=== PATIENT | male | born 1960 | race Caucasian/White ===

== ENCOUNTER 2022-08-08 09:22 | Outpatient (RCR) | payer BC, SELFPAY ==
[2022-08-08 09:30] VITALS: BP 156/90; PULSE 61; TEMP 36.4; BMI 41.4
--- NOTE | 2022-08-08 16:28 | HP.PCM_ITS ---
History of Present Illness Date of Service: 08/08/22 Chief Complaint: Swelling and edema in the patient's lower extremities temitope aterally History of Wound: This is a 61-year-old male who was referred by his orthopedic surgeon, Dr. Najera, for evaluation and management of the patient's lower extremity swelling and edema. The patient has severe degenerative knee disease bilaterally, which greatly hampers his ability to ambulate. His orthopedic surgeon is contemplating bilateral total knee replacement, which is anticipated to involve left total knee replacement initially. However, the patient's morbid obesity and lower extremity swelling are concerns about which the patient's orthopedic surgeon has expressed. Dr. Najera has recommended that the patient engage in weight loss efforts prior to consideration of left total knee replacement. Control the patient's lower extremity swelling is also desired. The patient claims to sleep on a flat mattress at night. 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 His ambulation is extremely limited by his severe degenerative knee disease. He ambulates very slowly with the aid of a cane. The swelling in the patient's lower extremities is said to be worse at the end of the day. He denies a history of thrombophlebitis. He is currently under taking no preventative measures with regard to the swelling and edema. [facility] Medical History Degenerative joint disease of knee, left Degenerative joint disease of knee, right Hyperlipidemia Hypertension Leg edema, left Leg edema, right Leg swelling Morbid obesity with BMI of 40.0-44.9, adult Home Medications metoprolol tartrate 50 mg tablet 50 mg PO BID 08/08/22 [History Last Taken Unknown] rosuvastatin 10 mg tablet 10 mg PO DAILY 08/08/22 [History Last Taken Unknown] Vital Signs Vital Signs Vital Signs: 08/08/22 09:30 Temperature 97.6 F L Temperature Source Temporal Pulse Rate 61 Blood Pressure 156/90 H Blood Pressure Mean 112 Blood Pressure Source Monitor Blood Pressure Position Semi-Fowlers Blood Pressure Location Left Arm Weight Weight: 280 lb 9.877 oz Body Mass Index (BMI) 41.4 Physical Exam Const alert, oriented x3, no apparent distress and well nourished Constitutional Narrative: The patient is morbidly obese. General Appearance: cooperative, comfortable, well kempt and well developed Orientation / Consciousness: awake, oriented to person, oriented to place and oriented to time Exam Limitations: no limitations HEENT normocephalic and head/scalp atraumatic Head and Scalp: normal to inspection, normocephalic and atraumatic External Ear: external ears normal Eyes PERRL and EOMs intact bilaterally General Eye: normal appearance of both eyes Resp normal respiratory effort, normal air movement, no retractions and no use of accessory muscles Effort and Inspection: able to speak in complete sentences Extremity no calf tenderness General Extremity: Negative for clubbing or cyanosis Skin Wound Narrative: There are no open wounds or ulcerations in the patient's lower extremities. Significant anatomic distortion is noted in the patient's lower extremities, particularly on the left, with angulation of the left lower extremity due to the patient's degenerative left knee disease. Scattered varicosities are noted. Are noted in the patient's lower extremities. Neuro oriented x3, CN's II-XII intact bilaterally and moves all extremities Sensorium / Orientation: awake, alert, oriented to person, oriented to place and oriented to time Psych Appearance: grossly normal and appropriate Attitude: calm Activity / Motor Behavior: appropriate eye contact Speech: normal speech Mood & Affect: euthymic mood Thought Process: normal thought process Thought Content: normal thought content Attention / Concentration: attention grossly intact Debridement Note Debridement Note No debridement was completed: No debridement was completed today (There are no open wounds or ulcerations.) Post-Debridement Measurements and Additional Note: Post-Debridement Measurements/Treatment ZAID - Nurse 1 - General Ulcer Assessment Start: 08/08/22 09:30 Freq: Status: Active Protocol: ZAK Activity Type Activity Date Activity User E-sign Co-sign Detail Recorded Client Recorded Date Recorded By Document 08/08/22 09:30 DANNY [id number] 08/08/22 09:40 DANNY 08/08/22 09:30 - Today's Visit Information Type of service Initial Visit Arrival Mode Ambulatory,Cane Patient Identification Verified (Name & Yes ) Height and Weight Height 5 ft 9 in Weight 280 lb 9.877 oz Weight in Pounds 280.6 lbs Body Mass Index (BMI) 41.4 BMI Classification Obese BSA - Jessy 2.39 Vital Signs Temperature (97.8 F-99.1 F) 97.6 F L Temperature Source Temporal Pulse Rate (60-100) 61 Pulse Location Monitor Blood Pressure (90/60-120/80) 156/90 H Blood Pressure Mean 112 Source Monitor Position Semi-Fowlers Blood Pressure Location Left Arm History Since Last Visit- (Skip if this is Patient's initial visit) Have you changed medications since your No last visit? Any new allergies or adverse reactions No Had a fall/change in ADL's that may No increase risk of falls Signs or symptoms of abuse and/or No neglect since last visit Have you been in the hospital since your No last visit? Has dressing in place as prescribed No Has compression in place as prescribed N/A Has offloadiing in place as prescribed N/A Experienced any changes in pain level or No management Left Footwear Regular Shoe Right Footwear Regular Shoe Pain Scale: 0-10 Numeric Is Patient Pain Free? Yes - Nurse 1 - General Ulcer Measurement Start: 08/08/22 09:30 Freq: Status: Active Protocol: Activity Type Activity Date Activity User E-sign Co-sign Detail Recorded Client Recorded Date Recorded By Document 08/08/22 09:30 KR [id number] 08/08/22 09:40 KR 08/08/22 09:30 Wound Center Nurse 1 Right Calf (cm) 51.5 Right Ankle (cm) 26.5 Left Calf (cm) 54.6 Left Ankle (cm) 26.8 - Nurse 3 - General Ulcer D/C NN Start: 08/08/22 09:30 Freq: Status: Active Protocol: Activity Type Activity Date Activity User E-sign Co-sign Detail Recorded Client Recorded Date Recorded By Document 08/08/22 10:06 NOÉ [id number] 08/08/22 10:07 NOÉ 08/08/22 10:06 Wound Care Nurse 3 Left -Tubular Bandage Single Layer -Size of Tubigrip Used Size E -Size E ($) 1 Right -Tubular Bandage Single Layer -Size of Tubigrip Used Size E -Size E ($) 1 Treatment Response Procedure Tolerated Well Pain Scale: 0-10 Numeric Is Patient Pain Free? Yes WC - Visit Discharge Discharge Condition Stable Ambulatory Status Ambulatory,Cane Transportation Private Auto Notes: Wt: 290.6 Facility Type [facility] Care Facility Orders Sent Yes Assessment/Plan Assessment/Plan (1) Leg swelling: CODE(S): M79.89 - Other specified soft tissue disorders (2) Leg edema, left: CODE(S): R60.0 - Localized edema (3) Leg edema, right: CODE(S): R60.0 - Localized edema (4) Degenerative joint disease of knee, left: CODE(S): M17.12 - Unilateral primary osteoarthritis, left knee (5) Degenerative joint disease of knee, right: CODE(S): M17.11 - Unilateral primary osteoarthritis, right knee (6) Morbid obesity with BMI of 40.0-44.9, adult: CODE(S): E66.01 - Morbid (severe) obesity due to excess calories; Z68.41 - Body mass index [BMI] 40.0-44.9, adult (7) Hypertension: CODE(S): I10 - Essential (primary) hypertension (8) Hyperlipidemia: CODE(S): E78.5 - Hyperlipidemia, unspecified PLAN: Plan This is a 61-year-old morbidly obese male with severe degenerative joint disease of his knees. As result, the patient is very limited in his ambulatory capacity. He ambulates very slowly with the aid of a cane. He is under the care of an orthopedic surgeon at the [facility] in [place], [place]. Total knee replacement surgeries are anticipated, but his orthopedic surgeon has recommended weight loss as a prelude to knee replacement surgery. It is also desired that the swelling in the patient's lower extremities, under control. Conservative treatment measures are to be implemented, and have been discussed thoroughly with the patient today. Leg elevation has been discussed. The patient is to elevate his lower extremities is much as possible. He is to continue sleeping on a flat mattress at night. Leg elevation is to be implemented even during daytime hours. His legs are to be elevated to heart level, or higher, is much as possible. Prolonged idle sitting has been discouraged, and is to be kept to a minimum. Unfortunately, while ambulation and activity would be desirable, the patient is extremely limited in his ambulatory capacity due to his degenerative joint disease of his knees. We are to implement compression by means of Tubigrip's of 20 to 30 mmHg compression. These are to be donned each morning, and doffed at bedtime. The patient has an appointment for nutritional consultation next week, at which time it is anticipated that weight loss measures will be discussed and implemented. Patient is to return next week for reevaluation by the nursing staff, and will return the following week for physician reassessment. Total time: 25 minutes
== END 2022-08-11 23:59 | disposition home or self-care (01) ==
LOC: WC 09:22
PROVIDERS: Visit Provider Surgery
DX: R60.0 Localized edema (principal); E66.01 Morbid (severe) obesity due to excess calories; Z68.41 Body mass index [BMI] 40.0-44.9, adult; M17.0 Bilateral primary osteoarthritis of knee; E78.5 Hyperlipidemia, unspecified; I10 Essential (primary) hypertension; M79.89 Other specified soft tissue disorders; Z79.899 Other long term (current) drug therapy
CPT/HCPCS: 99213; G0463

== ENCOUNTER 2022-09-05 09:30 | Outpatient (RCR) | payer BC, SELFPAY ==
[2022-08-12 01:51] VITALS: BP 156/90; PULSE 61; TEMP 36.4; BMI 41.4
[2022-08-15 15:03] VITALS: BP 158/89; PULSE 64; RESP 18; TEMP 37.1; BMI 41.4
[2022-08-29 10:14] VITALS: BP 148/84; PULSE 61; RESP 20; TEMP 36.3; BMI 41.4
--- NOTE | 2022-08-29 11:29 | PCM.WC.HP ---
History of Present Illness Date of Service: 08/29/22 Chief Complaint: Swelling and edema in the patient's lower extremities bilaterally History of Wound: This is a 61-year-old male who was referred by his orthopedic surgeon, Dr. Najera, for evaluation and management of the patient's lower extremity swelling and edema. The patient has severe degenerative knee disease bilaterally, which greatly hampers his ability to ambulate. His orthopedic surgeon is contemplating bilateral total knee replacement, which is anticipated to involve left total knee replacement initially. However, the patient's morbid obesity and lower extremity swelling are concerns about which the patient's orthopedic surgeon has expressed. Dr. Najera has recommended that the patient engage in weight loss efforts prior to consideration of left total knee replacement. Control the patient's lower extremity swelling is also desired. The patient claims to sleep on a flat mattress at night. 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 His ambulation is extremely limited by his severe degenerative knee disease. He ambulates very slowly with the aid of a cane. The swelling in the patient's lower extremities is said to be worse at the end of the day. He denies a history of thrombophlebitis. He is currently under taking no preventative measures with regard to the swelling and edema. [facility] Medical History Degenerative joint disease of knee, left Degenerative joint disease of knee, right Hyperlipidemia Hypertension Leg edema, left Leg edema, right Leg swelling Morbid obesity with BMI of 40.0-44.9, adult Home Medications metoprolol tartrate 50 mg tablet 50 mg PO BID 08/08/22 [History Last Taken Unknown] rosuvastatin 10 mg tablet 10 mg PO DAILY 08/08/22 [History Last Taken Unknown] Vital Signs Vital Signs Vital Signs: 08/29/22 10:14 Temperature 97.4 F L Temperature Source Temporal Pulse Rate 61 Respiratory Rate 20 H Blood Pressure 148/84 H Blood Pressure Mean 105 Blood Pressure Source Monitor Weight Weight: 280 lb 9.877 oz Body Mass Index (BMI) 41.4 Physical Exam Const alert, oriented x3, no apparent distress and well nourished Constitutional Narrative: The patient is morbidly obese. General Appearance: cooperative, comfortable, well kempt and well developed Orientation / Consciousness: awake, oriented to person, oriented to place and oriented to time Exam Limitations: no limitations HEENT normocephalic and head/scalp atraumatic Head and Scalp: normal to inspection, normocephalic and atraumatic External Ear: external ears normal Eyes PERRL and EOMs intact bilaterally General Eye: normal appearance of both eyes Resp normal respiratory effort, normal air movement, no retractions and no use of accessory muscles Effort and Inspection: able to speak in complete sentences Extremity no calf tenderness General Extremity: Negative for clubbing or cyanosis Skin Wound Narrative: There are no open wounds or ulcerations in the patient's lower extremities. Significant anatomic distortion is noted in the patient's lower extremities, particularly on the left, with angulation of the left lower extremity due to the patient's degenerative left knee disease. Scattered varicosities are noted in the patient's lower extremities. Only slight swelling and edema are noted in the patient's lower extremities at ankle level. In the upper calves, however, significant swelling is noted. There has been little or no improvement in the circumferences at calf and ankle level bilaterally within the last week. Neuro oriented x3, CN's II-XII intact bilaterally and moves all extremities Sensorium / Orientation: awake, alert, oriented to person, oriented to place and oriented to time Psych Appearance: grossly normal and appropriate Attitude: calm Activity / Motor Behavior: appropriate eye contact Speech: normal speech Mood & Affect: euthymic mood Thought Process: normal thought process Thought Content: normal thought content Attention / Concentration: attention grossly intact Debridement Note Debridement Note No debridement was completed: No debridement was completed today (There are no open wounds or ulcerations.) Post-Debridement Measurements and Additional Note: Post-Debridement Measurements/Treatment - Nurse 1 - General Ulcer Assessment Start: 08/15/22 14:55 Freq: Status: Active Protocol: ZAID.VALENTIN Activity Type Activity Date Activity User E-sign Co-sign Detail Recorded Client Recorded Date Recorded By Document 08/15/22 15:03 PL [id number] 08/15/22 15:04 PL Document 08/29/22 10:14 DL [id number] 08/29/22 10:17 DL 08/15/22 08/29/22 15:03 10:14 - Today's Visit Information Type of service Nurse-only Follow-up Visit Visit (Physician/CHRISTMAS BELL RINGER ) Arrival Mode Ambulatory Ambulatory Transfer Assistance None None Patient Identification Verified (Name & Yes Yes ) Patient Requires Transmission-Based No No Precautions Safety Precautions NA Height and Weight Body Mass Index (BMI) 41.4 41.4 BMI Classification Obese Obese Vital Signs Temperature (97.8 F-99.1 F) 98.8 F 97.4 F L Temperature Source Temporal Temporal Pulse Rate (60-100) 64 61 Pulse Location Monitor Respiratory Rate (12-18) 18 20 H Respiratory rate source Observation Blood Pressure (90/60-120/80) 158/89 H 148/84 H Blood Pressure Mean 112 105 Source Monitor History Since Last Visit- (Skip if this is Patient's initial visit) Have you changed medications since your No No last visit? Any new allergies or adverse reactions No No Had a fall/change in ADL's that may No No increase risk of falls Signs or symptoms of abuse and/or No No neglect since last visit Have you been in the hospital since your No No last visit? Has dressing in place as prescribed Yes No Has compression in place as prescribed Yes Yes Has offloadiing in place as prescribed N/A N/A Experienced any changes in pain level or No No management Left Footwear Regular Shoe Right Footwear Regular Shoe Pain Scale: 0-10 Numeric Is Patient Pain Free? Yes Yes WC - Nurse 1 - General Ulcer Measurement Start: 08/15/22 14:55 Freq: Status: Active Protocol: Activity Type Activity Date Activity User E-sign Co-sign Detail Recorded Client Recorded Date Recorded By Document 08/29/22 10:14 DL [id number] 08/29/22 10:17 DL 08/29/22 10:14 Wound Center Nurse 1 Right Calf (cm) 51.2 Right Ankle (cm) 27.2 Left Calf (cm) 53.6 Left Ankle (cm) 27.7 - Nurse 3 - General Ulcer D/C NN Start: 08/15/22 14:55 Freq: Status: Active Protocol: Activity Type Activity Date Activity User E-sign Co-sign Detail Recorded Client Recorded Date Recorded By Document 08/15/22 15:03 PL [id number] 08/15/22 15:04 PL Document 08/29/22 11:03 DL [id number] 08/29/22 11:04 DL 08/15/22 08/29/22 15:03 11:03 Vital Signs Temperature (97.8 F-99.1 F) 98.8 F Temperature Source Temporal Pulse Rate (60-100) 64 Respiratory Rate (12-18) 18 Blood Pressure (90/60-120/80) 158/89 H Blood Pressure Mean 112 Pain Scale: 0-10 Numeric Is Patient Pain Free? Yes Yes Wound Care Nurse 3 Bilateral -Lotion applied to leg before Yes compression wrap -Multi-Layered Wrap Application Multi-Layer Comp - Bilat ($ ) -Tubular Bandage Single Layer -Size of Tubigrip Used Size E -Size E ($) 4 WC - Visit Discharge Discharge Condition Stable Stable Ambulatory Status Ambulatory Ambulatory Transportation Private Auto Assessment/Plan Assessment/Plan (1) Leg swelling: CODE(S): M79.89 - Other specified soft tissue disorders (2) Leg edema, left: CODE(S): R60.0 - Localized edema (3) Leg edema, right: CODE(S): R60.0 - Localized edema (4) Degenerative joint disease of knee, left: CODE(S): M17.12 - Unilateral primary osteoarthritis, left knee (5) Degenerative joint disease of knee, right: CODE(S): M17.11 - Unilateral primary osteoarthritis, right knee (6) Morbid obesity with BMI of 40.0-44.9, adult: CODE(S): E66.01 - Morbid (severe) obesity due to excess calories; Z68.41 - Body mass index [BMI] 40.0-44.9, adult (7) Hypertension: CODE(S): I10 - Essential (primary) hypertension (8) Hyperlipidemia: CODE(S): E78.5 - Hyperlipidemia, unspecified PLAN: Plan This is a 61-year-old morbidly obese male with severe degenerative joint disease of his knees. As result, the patient is very limited in his ambulatory capacity. He ambulates very slowly with the aid of a cane. He is under the care of an orthopedic surgeon at the [facility] in [place], [place]. Total knee replacement surgeries are anticipated, but his orthopedic surgeon has recommended weight loss as a prelude to knee replacement surgery. It is also desired that the swelling in the patient's lower extremities be brought under control. Conservative treatment measures are to be continued, and have been discussed thoroughly with the patient today. Leg elevation has been discussed. The patient is to elevate his lower extremities is much as possible. He is to continue sleeping on a flat mattress at night. Leg elevation is to be implemented even during daytime hours. His legs are to be elevated to heart level, or higher, as much as possible. Prolonged idle sitting has been discouraged, and is to be kept to a minimum. Unfortunately, while ambulation and activity would be desirable, the patient is extremely limited in his ambulatory capacity due to his degenerative joint disease of his knees. We are to continue compression to the lower extremities by means of 3M 2 layer compression wraps which will be applied topically today, and changed twice weekly. It appears as though the patient has been less than totally compliant with the leg elevation and Tubigrip's which have been the mainstay of therapy thus far. Furthermore, in discussions with the patient, he appears somewhat resistant to the idea of leg elevation and compression, in terms of attitude and demeanor. As result, there has been little improvement in the swelling and edema in his lower extremities. The patient has an appointment for nutritional consultation in the near future, at which time it is anticipated that weight loss measures will be discussed and implemented. The patient is to return for reevaluation in 1 week. Total time: 28 minutes
[2022-09-01 11:20] VITALS: BP 118/79; PULSE 64; RESP 18; TEMP 36.6; BMI 41.4
[2022-09-05 09:55] VITALS: BP 127/70; PULSE 64; RESP 18; TEMP 36.1; BMI 41.4
--- NOTE | 2022-09-05 14:37 | PCM.WC.HP ---
History of Present Illness Date of Service: 09/05/22 Chief Complaint: Swelling and edema in the patient's lower extremities bilaterally History of Wound: This is a 61-year-old male who was referred by his orthopedic surgeon, Dr. Najera, for evaluation and management of the patient's lower extremity swelling and edema. The patient has severe degenerative knee disease bilaterally, which greatly hampers his ability to ambulate. His orthopedic surgeon is contemplating bilateral total knee replacement, which is anticipated to involve left total knee replacement initially. However, the patient's morbid obesity and lower extremity swelling are concerns about which the patient's orthopedic surgeon has expressed. Dr. Najera has recommended that the patient engage in weight loss efforts prior to consideration of left total knee replacement. Control the patient's lower extremity swelling is also desired. The patient claims to sleep on a flat mattress at night. 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 His ambulation is extremely limited by his severe degenerative knee disease. He ambulates very slowly with the aid of a cane. The swelling in the patient's lower extremities is said to be worse at the end of the day. He denies a history of thrombophlebitis. He is currently under taking no preventative measures with regard to the swelling and edema. [facility] Medical History Degenerative joint disease of knee, left Degenerative joint disease of knee, right Hyperlipidemia Hypertension Leg edema, left Leg edema, right Leg swelling Morbid obesity with BMI of 40.0-44.9, adult Home Medications metoprolol tartrate 50 mg tablet 50 mg PO BID 08/08/22 [History Last Taken Unknown] rosuvastatin 10 mg tablet 10 mg PO DAILY 08/08/22 [History Last Taken Unknown] Vital Signs Vital Signs Vital Signs: 09/05/22 09:55 Temperature 97 F L Temperature Source Temporal Pulse Rate 64 Respiratory Rate 18 Blood Pressure 127/70 H Blood Pressure Mean 89 Blood Pressure Source Monitor Blood Pressure Position Semi-Fowlers Blood Pressure Location Left Arm Weight Weight: 280 lb 9.877 oz Body Mass Index (BMI) 41.4 Physical Exam Const alert, oriented x3, no apparent distress and well nourished Constitutional Narrative: The patient is morbidly obese. General Appearance: cooperative, comfortable, well kempt and well developed Orientation / Consciousness: awake, oriented to person, oriented to place and oriented to time Exam Limitations: no limitations HEENT normocephalic and head/scalp atraumatic Head and Scalp: normal to inspection, normocephalic and atraumatic External Ear: external ears normal Eyes PERRL and EOMs intact bilaterally General Eye: normal appearance of both eyes Resp normal respiratory effort, normal air movement, no retractions and no use of accessory muscles Effort and Inspection: able to speak in complete sentences Extremity no calf tenderness General Extremity: Negative for clubbing or cyanosis Skin Wound Narrative: There are no open wounds or ulcerations in the patient's lower extremities. Significant anatomic distortion is noted in the patient's lower extremities, particularly on the left, with angulation of the left lower extremity due to the patient's degenerative left knee disease. Scattered varicosities are noted in the patient's lower extremities. Only slight swelling and edema are noted in the patient's lower extremities at ankle level. There has been significant improvement in the swelling bilaterally. It is now at a minimum and judged to be at the patient's baseline. Neuro oriented x3, CN's II-XII intact bilaterally and moves all extremities Sensorium / Orientation: awake, alert, oriented to person, oriented to place and oriented to time Psych Appearance: grossly normal and appropriate Attitude: calm Activity / Motor Behavior: appropriate eye contact Speech: normal speech Mood & Affect: euthymic mood Thought Process: normal thought process Thought Content: normal thought content Attention / Concentration: attention grossly intact Debridement Note Debridement Note No debridement was completed: No debridement was completed today (There are no open wounds or ulcerations.) Post-Debridement Measurements and Additional Note: Post-Debridement Measurements/Treatment - Nurse 1 - General Ulcer Assessment Start: 08/15/22 14:55 Freq: Status: Active Protocol: ZAK Activity Type Activity Date Activity User E-sign Co-sign Detail Recorded Client Recorded Date Recorded By Document 08/15/22 15:03 PL [id number] 08/15/22 15:04 PL Document 08/29/22 10:14 DL [id number] 08/29/22 10:17 DL Document 09/01/22 11:20 RB [id number] 09/01/22 11:21 RB Document 09/05/22 09:55 RB [id number] 09/05/22 09:56 RB 08/15/22 08/29/22 09/01/22 15:03 10:14 11:20 WC - Today's Visit Information Type of service Nurse-only Follow-up Visit Nurse-only Visit (Physician/REGIONAL ENGAGEMENT CONSULTANT Visit ) Arrival Mode Ambulatory Ambulatory Ambulatory Transfer Assistance None None None Patient Identification Verified (Name & Yes Yes Yes ) Patient Requires Transmission-Based No No No Precautions Safety Precautions NA Height and Weight Body Mass Index (BMI) 41.4 41.4 41.4 BMI Classification Obese Obese Obese Vital Signs Temperature (97.8 F-99.1 F) 98.8 F 97.4 F L 98 F Temperature Source Temporal Temporal Temporal Pulse Rate (60-100) 64 61 64 Pulse Location Monitor Monitor Respiratory Rate (12-18) 18 20 H 18 Respiratory rate source Observation Observation Blood Pressure (90/60-120/80) 158/89 H 148/84 H 118/79 Blood Pressure Mean 112 105 92 Source Monitor Monitor Position Semi-Fowlers Blood Pressure Location Left Arm History Since Last Visit- (Skip if this is Patient's initial visit) Have you changed medications since your No No No last visit? Any new allergies or adverse reactions No No No Had a fall/change in ADL's that may No No No increase risk of falls Signs or symptoms of abuse and/or No No No neglect since last visit Have you been in the hospital since your No No No last visit? Has dressing in place as prescribed Yes No Yes Has compression in place as prescribed Yes Yes No Has offloadiing in place as prescribed N/A N/A No Experienced any changes in pain level or No No No management Left Footwear Regular Shoe Right Footwear Regular Shoe Pain Scale: 0-10 Numeric Is Patient Pain Free? Yes Yes Yes 09/05/22 09:55 WC - Today's Visit Information Type of service Follow-up Visit (Physician/REGIONAL ENGAGEMENT CONSULTANT ) Arrival Mode Ambulatory Transfer Assistance None Patient Identification Verified (Name & Yes ) Patient Requires Transmission-Based No Precautions Safety Precautions Height and Weight Body Mass Index (BMI) 41.4 BMI Classification Obese Vital Signs Temperature (97.8 F-99.1 F) 97 F L Temperature Source Temporal Pulse Rate (60-100) 64 Pulse Location Monitor Respiratory Rate (12-18) 18 Respiratory rate source Observation Blood Pressure (90/60-120/80) 127/70 H Blood Pressure Mean 89 Source Monitor Position Semi-Fowlers Blood Pressure Location Left Arm History Since Last Visit- (Skip if this is Patient's initial visit) Have you changed medications since your No last visit? Any new allergies or adverse reactions No Had a fall/change in ADL's that may No increase risk of falls Signs or symptoms of abuse and/or No neglect since last visit Have you been in the hospital since your No last visit? Has dressing in place as prescribed Yes Has compression in place as prescribed Yes Has offloadiing in place as prescribed No Experienced any changes in pain level or No management Left Footwear Right Footwear Pain Scale: 0-10 Numeric Is Patient Pain Free? Yes WC - Nurse 1 - General Ulcer Measurement Start: 08/15/22 14:55 Freq: Status: Active Protocol: Activity Type Activity Date Activity User E-sign Co-sign Detail Recorded Client Recorded Date Recorded By Document 08/29/22 10:14 DL [id number] 08/29/22 10:17 DL Document 09/01/22 11:20 RB [id number] 09/01/22 11:21 RB Document 09/05/22 09:55 RB [id number] 09/05/22 09:56 RB 08/29/22 09/01/22 09/05/22 10:14 11:20 09:55 Wound Center Nurse 1 Lower Limb Edema Present Yes Yes Right Calf (cm) 51.2 48.2 50.5 Right Ankle (cm) 27.2 25 25.5 Left Calf (cm) 53.6 46 51 Left Ankle (cm) 27.7 24.5 25.5 - Nurse 2 - General Ulcer CM Notes Start: 08/15/22 14:55 Freq: Status: Active Protocol: Activity Type Activity Date Activity User E-sign Co-sign Detail Recorded Client Recorded Date Recorded By Document 09/05/22 14:06 PL [id number] 09/05/22 14:06 PL 09/05/22 14:06 Pain Scale: 0-10 Numeric Is Patient Pain Free? Yes ZAID - Nurse 3 - General Ulcer D/C NN Start: 08/15/22 14:55 Freq: Status: Active Protocol: Activity Type Activity Date Activity User E-sign Co-sign Detail Recorded Client Recorded Date Recorded By Document 08/15/22 15:03 PL [id number] 08/15/22 15:04 PL Document 08/29/22 11:03 DL [id number] 08/29/22 11:04 DL Document 09/01/22 11:20 RB [id number] 09/01/22 11:21 RB Document 09/05/22 10:26 RB [id number] 09/05/22 10:27 RB 08/15/22 08/29/22 09/01/22 15:03 11:03 11:20 Vital Signs Temperature (97.8 F-99.1 F) 98.8 F 98 F Temperature Source Temporal Temporal Pulse Rate (60-100) 64 64 Pulse Location Monitor Respiratory Rate (12-18) 18 18 Respiratory rate source Observation Blood Pressure (90/60-120/80) 158/89 H 118/79 Blood Pressure Mean 112 92 Source Monitor Position Semi-Fowlers Blood Pressure Location Left Arm Pain Scale: 0-10 Numeric Is Patient Pain Free? Yes Yes Yes Wound Care Nurse 3 Bilateral -Lotion applied to leg before Yes compression wrap -Multi-Layered Wrap Application Multi-Layer Multi-Layer Comp - Bilat ($ Comp - Bilat ($ ) ) -Tubular Bandage Single Layer -Size of Tubigrip Used Size E -Size E ($) 4 Treatment Response Procedure Tolerated Well WC - Visit Discharge Discharge Condition Stable Stable Stable Ambulatory Status Ambulatory Ambulatory Ambulatory,Cane Transportation Private Auto Private Auto Medication Reconcilliation completed & No provided to patient/care provider Clinical Summary of Care Provided Yes 09/05/22 10:26 Vital Signs Temperature (97.8 F-99.1 F) Temperature Source Pulse Rate (60-100) Pulse Location Respiratory Rate (12-18) Respiratory rate source Blood Pressure (90/60-120/80) Blood Pressure Mean Source Position Blood Pressure Location Pain Scale: 0-10 Numeric Is Patient Pain Free? Yes Wound Care Nurse 3 Bilateral -Lotion applied to leg before compression wrap -Multi-Layered Wrap Application -Tubular Bandage Single Layer -Size of Tubigrip Used Size E -Size E ($) 2 Treatment Response Procedure Tolerated Well WC - Visit Discharge Discharge Condition Stable Ambulatory Status Ambulatory Transportation Private Auto Medication Reconcilliation completed & No provided to patient/care provider Clinical Summary of Care Provided Yes Assessment/Plan Assessment/Plan (1) Leg swelling: CODE(S): M79.89 - Other specified soft tissue disorders (2) Leg edema, left: CODE(S): R60.0 - Localized edema (3) Leg edema, right: CODE(S): R60.0 - Localized edema (4) Degenerative joint disease of knee, left: CODE(S): M17.12 - Unilateral primary osteoarthritis, left knee (5) Degenerative joint disease of knee, right: CODE(S): M17.11 - Unilateral primary osteoarthritis, right knee (6) Morbid obesity with BMI of 40.0-44.9, adult: CODE(S): E66.01 - Morbid (severe) obesity due to excess calories; Z68.41 - Body mass index [BMI] 40.0-44.9, adult (7) Hypertension: CODE(S): I10 - Essential (primary) hypertension (8) Hyperlipidemia: CODE(S): E78.5 - Hyperlipidemia, unspecified PLAN: Plan This is a 61-year-old morbidly obese male with severe degenerative joint disease of his knees. As result, the patient is very limited in his ambulatory capacity. He ambulates very slowly with the aid of a cane. He is under the care of an orthopedic surgeon at the [facility] in [place], [place]. Total knee replacement surgeries are anticipated, but his orthopedic surgeon has recommended weight loss as a prelude to knee replacement surgery. It is also desired that the swelling in the patient's lower extremities be brought under control. Conservative treatment measures are to be continued, and have been discussed thoroughly with the patient today. Leg elevation has been discussed. The patient is to elevate his lower extremities is much as possible. He is to continue sleeping on a flat mattress at night. Leg elevation is to be implemented even during daytime hours. His legs are to be elevated to heart level, or higher, as much as possible. Prolonged idle sitting has been discouraged, and is to be kept to a minimum. Unfortunately, while ambulation and activity would be desirable, the patient is extremely limited in his ambulatory capacity due to his degenerative joint disease of his knees. We are to continue compression to the lower extremities by means of Tubigrip's of 20 to 30mmHg compression, which will be donned daily from morning until bedtime. Because of the improvement in the lower extremity swelling, the patient is to be discharged. His lower extremity circumferences have been measured, and Velcro compression garments are to be ordered, and delivered directly to the patient's residence. Once received, the patient is to return to the wound center where nursing staff will assist the patient and instruct in the appropriate means of application. The patient has been made aware that leg elevation and compression will be necessary for the long-term so as to maintain the gains that have been achieved within the last several weeks with respect to the reduction in swelling and edema. The patient will follow-up henceforth on an as-needed basis. Total time: 28 minutes
== END 2022-09-11 23:59 | disposition home or self-care (01) ==
LOC: WC 09:30
PROVIDERS: Visit Provider Surgery
DX: R60.0 Localized edema (principal); E66.01 Morbid (severe) obesity due to excess calories; Z68.41 Body mass index [BMI] 40.0-44.9, adult; M17.0 Bilateral primary osteoarthritis of knee; E78.5 Hyperlipidemia, unspecified; I10 Essential (primary) hypertension; M79.89 Other specified soft tissue disorders; Z79.899 Other long term (current) drug therapy; I83.93 Asymptomatic varicose veins of bilateral lower extremities
CPT/HCPCS: 29581; 99213; G0463